=== PATIENT | male | born 1985 | race Caucasian/White ===

== ENCOUNTER 2016-08-09 00:18 | Inpatient (IN) | payer MEDICARE ==
[2016-08-09 01:08] LABS: BASOPHIL 0.9 % (0-2.0); EOSINOPHIL 2.8 % (0-4.5); MCH 31.8 pg (25.7-33.7); MCHC 33.4 g/dl (32.0-35.9); MEAN PLT VOLUME 7.2 fl (7.5-11.1); NEUTROPHILS 64.2 % (42.8-82.8); PLATELET COUNT 319 K/MM3 (134-434); RDW 13.2 % (11.9-15.9); WHITE BLOOD COUNT 12.2 K/mm3 (4.0-10.0)
[2016-08-09 01:33] LABS: ALBUMIN 4.2 g/dl (3.4-5.0); ALK PHOS 97 U/L (45-117); ANION GAP 8 (8-16); BILIRUBIN,TOTAL 0.4 mg/dL (0.2-1.0); CO2 27 mmol/L (21-32); CREATININE 0.8 mg/dL (0.7-1.3); GLUCOSE,RANDOM 111 mg/dL (74-106); SGOT/AST 18 U/L (15-37); SGPT/ALT 55 U/L (12-78); TOT PROT 7.2 g/dl (6.4-8.2)
--- NOTE | 2016-08-09 01:45 | PDOC ---
History of Present Illness - General History Source: Patient Exam Limitations: No Limitations - History of Present Illness Initial Comments: 08/09/16 03:25 The patient is a 21-year-old male with no significant past medical history, and presents to the emergency department with abdominal pain for a week. The patient reports that the pain is localized to the left epigastric region. He reports the abdominal pain was initially intermittent, and occurred whenever he ate or drank. He reports that the abdominal pain has worsened in the last 24 hours, has since become constant in nature, and is exacerbated by eating, drinking, and walking. He took Pepto Bismol a week ago and Motrin yesterday with moderate relief. He states that he drank alcohol last week (8 beers, 2 shots of whiskey). He tried to eat a little today. The patient denies chest pain, shortness of breath, headache and dizziness. The patient denies fever, chills, nausea, vomit, diarrhea and constipation. The patient denies dysuria, frequency, urgency and hematuria. Allergies: NKDA Social History: Current everyday smoker, binge ETOH drinker <Anai Ward - Last Filed: 08/09/16 03:25> <Tammie Nathan - Last Filed: 08/09/16 04:45> - General Chief Complaint: Pain Stated Complaint: STOMACH PAIN Time Seen by Provider: 08/09/16 00:45 Past History <Anai Ward - Last Filed: 08/09/16 03:25> - Past Medical History Other medical history: denies - Psycho/Social/Smoking Cessation Hx Suicidal Ideation: No Smoking History: Current every day smoker Number of Cigarettes Smoked Daily: 1 Information on smoking cessation initiated: No <Tammie Nathan - Last Filed: 08/09/16 04:45> - Past Medical History Allergies/Adverse Reactions: Allergies Allergy/AdvReac Type Severity Reaction Status Date / Time No Known Allergies Allergy Verified 08/09/16 00:25 Home Medications: Ambulatory Orders NK [No Known Home Medication] 08/09/16 Review of Systems - Review of Systems Able to Perform ROS?: Yes Comments:: 08/09/16 03:26 CONSTITUTIONAL: Absent: fever, chills, diaphoresis, generalized weakness, malaise, loss of appetite HEENT: Absent: rhinorrhea, nasal congestion, throat pain, throat swelling, difficulty swallowing, mouth swelling, ear pain, eye pain, visual changes CARDIOVASCULAR: Absent: chest pain, syncope, palpitations, irregular heart rate, lightheadedness , peripheral edema RESPIRATORY: Absent: cough, shortness of breath, dyspnea with exertion, orthopnea, wheezing, stridor, hemoptysis GASTROINTESTINAL: Present: (+) abdominal pain Absent: abdominal distension, nausea, vomiting, diarrhea, constipation, melena, hematochezia GENITOURINARY: Absent: dysuria, frequency, urgency, hesitancy, hematuria, flank pain, genital pain MUSCULOSKELETAL: Absent: myalgia, arthralgia, joint swelling SKIN: Absent: rash, itching, pallor HEMATOLOGIC/IMMUNOLOGIC: Absent: easy bleeding, easy bruising, lymphadenopathy, frequent infections ENDOCRINE: Absent: unexplained weight gain, unexplained weight loss, heat intolerance, cold intolerance NEUROLOGIC: Absent: headache, focal weakness or paresthesias, dizziness, unsteady gait, seizure, mental status changes, bladder or bowel incontinence PSYCHIATRIC: Absent: anxiety, depression, suicidal or homicidal ideation, hallucinations. <Anai Ward - Last Filed: 08/09/16 03:25> *Physical Exam - Vital Signs Last Vital Signs Temp Pulse Resp BP Pulse Ox 97.9 F 85 20 125/69 100 08/09/16 00:23 08/09/16 00:23 08/09/16 00:23 08/09/16 00:23 08/09/16 00:23 - Physical Exam Comments: 08/09/16 03:26 GENERAL: Well developed, well nourished. Awake and alert. No acute distress. HEENT: Normocephalic, atraumatic. PERRLA, EOMI. No conjunctival pallor. Sclera are non- icteric. Moist mucous membranes. Oropharynx is clear. NECK: Supple. Full ROM. No JVD. Carotid pulses 2+ and symmetric, without bruits. No thyromegaly. No lymphadenopathy. CARDIOVASCULAR: Regular rate and rhythm. No murmurs, rubs, or gallops. Distal pulses are 2+ and symmetric. PULMONARY: No evidence of respiratory distress. Lungs clear to auscultation bilaterally. No wheezing, rales or rhonchi. ABDOMINAL: (+) Mild left upper quadrant tenderness to palpation. (+) Mild suprapubic tenderness. Soft. Non-distended. No rebound or guarding. No organomegaly. Normoactive bowel sounds. MUSCULOSKELETAL Normal range of motion at all joints. No bony deformities or tenderness. No CVA tenderness. EXTREMITIES: No cyanosis. No clubbing. No edema. No calf tenderness. SKIN: Warm and dry. Normal capillary refill. No rashes. No jaundice. NEUROLOGICAL: Alert, awake, appropriate. Cranial nerves 2-12 intact. No deficits to light touch and temperature in face, upper extremities and lower extremities. No motor deficits in the in face, upper extremities and lower extremities. Normoreflexic in the upper and lower extremities. Normal speech. Toes are down- going bilaterally. Gait is normal without ataxia. PSYCHIATRIC: Cooperative. Good eye contact. Appropriate mood and affect. <Anai Ward - Last Filed: 08/09/16 03:25> - Vital Signs Last Vital Signs Temp Pulse Resp BP Pulse Ox 97.9 F 85 20 125/69 100 08/09/16 00:23 08/09/16 00:23 08/09/16 00:23 08/09/16 00:23 08/09/16 00:23 <Tammie Nathan - Last Filed: 08/09/16 04:45> ED Treatment Course - LABORATORY CBC & Chemistry Diagram: 08/09/16 01:00 08/09/16 01:00 - ADDITIONAL ORDERS Additional order review: Laboratory Results 08/09/16 01:00 Sodium 141 Potassium 3.5 Chloride 106 Carbon Dioxide 27 Anion Gap 8 BUN 18 Creatinine 0.8 Creat Clearance w eGFR > 60 Random Glucose 111 H Calcium 9.0 Total Bilirubin 0.4 AST 18 ALT 55 Alkaline Phosphatase 97 Total Protein 7.2 Albumin 4.2 Lipase 711 H 08/09/16 01:00 RBC 4.62 MCV 95.0 MCHC 33.4 RDW 13.2 MPV 7.2 L Neutrophils % 64.2 Lymphocytes % 23.4 Monocytes % 8.7 Eosinophils % 2.8 Basophils % 0.9 - Medications Given in the ED: ED Medications Discontinued Medications Generic Name Dose Route Start Last Admin Trade Name Freq PRN Reason Stop Dose Admin Sodium Chloride 1,000 ml 08/09/16 01:59 08/09/16 02:14 Normal Saline - IV 08/09/16 02:00 1,000 ml ONCE ONE Administration <Anai Ward - Last Filed: 08/09/16 03:25> - LABORATORY CBC & Chemistry Diagram: 08/09/16 01:00 08/09/16 01:00 - ADDITIONAL ORDERS Additional order review: Laboratory Results 08/09/16 01:00 Sodium 141 Potassium 3.5 Chloride 106 Carbon Dioxide 27 Anion Gap 8 BUN 18 Creatinine 0.8 Creat Clearance w eGFR > 60 Random Glucose 111 H Calcium 9.0 Total Bilirubin 0.4 AST 18 ALT 55 Alkaline Phosphatase 97 Total Protein 7.2 Albumin 4.2 Lipase 711 H 08/09/16 01:00 RBC 4.62 MCV 95.0 MCHC 33.4 RDW 13.2 MPV 7.2 L Neutrophils % 64.2 Lymphocytes % 23.4 Monocytes % 8.7 Eosinophils % 2.8 Basophils % 0.9 - RADIOLOGY Radiology Studies Ordered: Category Date Time Status ABDOMEN & PELVIS CT WITH CONTR [CT] Stat CT Scan 08/09/16 01:22 Ordered <Tammie Nathan - Last Filed: 08/09/16 04:45> Medical Decision Making - Medical Decision Making 08/09/16 03:35 Pt is a binger drinker, beer and other hard liquior shots on weekends. [place] with epigastric pain and pancreatitis. Pt is unable to eat due to the pain. He has normal CXR; no pancreatic pseudocyst on CT scan of abd/pelvis. Pt has Normal EKG. He was hydrated. Treated with toradol and pepcid. He will be kept NPO and admitted to the hospitalist. 08/09/16 04:44 Patient Name: Pavel Gonzales THIS IS A PRELIMINARY REPORT FROM [facility] DATE OF SERVICE: 2016-08-09 02:47:27.0 IMAGES: [id number] EXAM: ABDOMEN & PELVIS CT WITH CONTR COMPARISON: None. IMPRESSION: Suggestion of multifocal areas of trace wall thickening and fat stranding seen surrounding multiple loops of large intestine. These findings may represent colitis in the appropriate clinical setting. No bowel obstruction or pneumoperitoneum. No abscess. No evidence of appendicitis. THIS DOCUMENT HAS BEEN ELECTRONICALLY SIGNED Pt has colitis and will be treated with ABX <Tammie Nathan - Last Filed: 08/09/16 04:45> *DC/Admit/Observation/Transfer - Attestations Scribe Attestion: 08/09/16 03:26 Documentation prepared by Anai Ward, acting as medical records secretary for Tammie Nathan MD. <Anai Ward - Last Filed: 08/09/16 03:25> - Discharge Dispostion Admit: Yes <Tammie Nathan - Last Filed: 08/09/16 04:45> Diagnosis at time of Disposition: Pancreatitis, Abdominal pain, Alcohol consumption binge drinking, Colitis - Discharge Dispostion Condition at time of disposition: Guarded
[2016-08-09] MEDS ORDERED: SODIUM CHLORIDE 0.9% 500 ML INFUS.BAG IV ONE (01:59)
--- NOTE | 2016-08-09 03:23 | PN ---
<Leatha Francois - Last Filed: 08/09/16 03:23> Teaching Attending Note Name of Resident: Maribel Arita ATTENDING PHYSICIAN STATEMENT I saw and evaluated the patient. I reviewed the resident's note and discussed the case with the resident. I agree with the resident's findings and plan as documented. SUBJECTIVE: OBJECTIVE: ASSESSMENT AND PLAN: <Claudia Clemons - Last Filed: 08/09/16 04:14> Teaching Attending Note ATTENDING PHYSICIAN STATEMENT I saw and evaluated the patient. I reviewed the resident's note and discussed the case with the resident. I agree with the resident's findings and plan as documented. SUBJECTIVE: Patient is a 31 yo M with no PMHx presents with abdominal pain located in the left epigastric abdomen for one week. Worsened over the course of the week. Last drink was New Years Nell. The patient denies chest pain, shortness of breath, headache and dizziness. The patient denies fever, chills, nausea, vomit, diarrhea and constipation. The patient denies dysuria, frequency, urgency and hematuria. Allergies: NKDA Social History: Current everyday smoker 1 pack in 1 week, occasional ETOH drinker Surgical Hx: None OBJECTIVE: Last Vital Signs Temp Pulse Resp BP Pulse Ox 97.9 F 85 20 125/69 100 08/09/16 00:23 08/09/16 00:23 08/09/16 00:23 08/09/16 00:23 08/09/16 00:23 CBCD WBC 12.2 K/mm3 (4.0-10.0) H 08/09/16 01:00 RBC 4.62 M/mm3 (4.00-5.60) 08/09/16 01:00 Hgb 14.7 GM/dL (11.7-16.9) 08/09/16 01:00 Hct 43.9 % (35.4-49) 08/09/16 01:00 MCV 95.0 fl (80-96) 08/09/16 01:00 MCHC 33.4 g/dl (32.0-35.9) 08/09/16 01:00 RDW 13.2 % (11.9-15.9) 08/09/16 01:00 Plt Count 319 K/MM3 (134-434) 08/09/16 01:00 MPV 7.2 fl (7.5-11.1) L 08/09/16 01:00 GENERAL: Awake, alert, and fully oriented, in no acute distress HEENT: Atraumatic. PERRLA, EOMI. Moist mucosa. No JVD LUNGS: No distress, speaks full sentences, clear to auscultation bilaterally HEART: Regular rate and rhythm, normal S1 and S2, no murmurs, rubs or gallops, peripheral pulses normal and equal bilaterally. ABDOMEN: Soft, nontender, normoactive bowel sounds. No guarding, no rebound. No masses EXTREMITIES: Normal inspection, Normal range of motion, no edema. No clubbing or cyanosis. NEUROLOGICAL: Cranial nerves II through XII grossly intact. Normal speech, normal gait, no focal sensorimotor deficits SKIN: Warm, Dry, normal turgor, no rashes or lesions noted. CMP Sodium 141 mmol/L (136-145) 08/09/16 01:00 Potassium 3.5 mmol/L (3.5-5.1) 08/09/16 01:00 Chloride 106 mmol/L (98-107) 08/09/16 01:00 Carbon Dioxide 27 mmol/L (21-32) 08/09/16 01:00 Anion Gap 8 (8-16) 08/09/16 01:00 BUN 18 mg/dL (7-18) 08/09/16 01:00 Creatinine 0.8 mg/dL (0.7-1.3) 08/09/16 01:00 Creat Clearance w eGFR > 60 (>60) 08/09/16 01:00 Calcium 9.0 mg/dL (8.5-10.1) 08/09/16 01:00 Total Bilirubin 0.4 mg/dL (0.2-1.0) 08/09/16 01:00 AST 18 U/L (15-37) 08/09/16 01:00 ALT 55 U/L (12-78) 08/09/16 01:00 Alkaline Phosphatase 97 U/L (45-117) 08/09/16 01:00 Total Protein 7.2 g/dl (6.4-8.2) 08/09/16 01:00 Albumin 4.2 g/dl (3.4-5.0) 08/09/16 01:00 CT: Abdomen Pelvis pending ASSESSMENT AND PLAN: 31 yo male with no PMH presents with acute pancreatitis. 1.)Acute pancreatitis -NPO -IVF -Pain control -Follow up final read of abdomen CT 2.) DVT ppx -Low risk ambulate Documentation prepared by Claudia Clemons, acting as medical driver for Leatha Francois M.D.
[2016-08-09] MEDS ORDERED: PANTOPRAZOLE SODIUM 40 MG in SODIUM CHLORIDE 100 ML IVPB ONE (03:24)
[2016-08-09] MEDS ORDERED: KETOROLAC TROMETHAMINE 30 MG/1 ML VIAL IVPUSH ONE (03:24)
[2016-08-09] MEDS ORDERED: PANTOPRAZOLE SODIUM 100 ML IVPB ONE (03:25)
[2016-08-09] MEDS ORDERED: KETOROLAC TROMETHAMINE 30 MG/1 ML VIAL ONE (03:25)
--- NOTE | 2016-08-09 04:10 | HP ---
CHIEF COMPLAINT: Abdominal pain x 1 week PCP: No PCP. Upon discharge please assign Dr. Smallwood (To make appointment on Wednesday after 1 pm if possible) HISTORY OF PRESENT ILLNESS: 31 year old male with no past medical hx presented to the ED for severe abdominal pain. Abdominal pain started around 1 week ago, sudden in onset, progressively getting worse, located in the left upper quadrant, cramping in nature, non radiating, not associated with nausea or vomiting. Abdominal pain is aggravated by eating any kind of food. Patients mother gave him Motrin ( Liquid) which decreased the severity of pain to some extent. This morning, patient had severe abdominal pain on the way to work. Had to return back, slept for several hours. After he woke up, he ate which aggravated his pain and his mother brought him to the hospital. ER course was notable for: (1) CBC, CMP (2) Abdominal CT (3) IV NS, Protonix, Ketorolac Recent Travel: None PAST MEDICAL HISTORY: None PAST SURGICAL HISTORY: None Social History: Smoking: Active smoker, smokes 1 pack/1 week since 5 years. Alcohol: Drinks on the weekends, 2-3 bottles of beer. Last took alcohol on . Drugs: No use of illicit drugs. Family History: Allergies No Known Allergies Allergy (Verified 08/09/16 00:25) HOME MEDICATIONS: Medication Instructions Recorded NK [No Known Home Medication] 08/09/16 REVIEW OF SYSTEMS CONSTITUTIONAL: Absent: fever, chills, diaphoresis, generalized weakness, malaise, loss of appetite, weight change HEENT: Absent: rhinorrhea, nasal congestion, throat pain, throat swelling, difficulty swallowing, mouth swelling, ear pain, eye pain, visual changes CARDIOVASCULAR: Absent: chest pain, syncope, palpitations, irregular heart rate, lightheadedness , peripheral edema RESPIRATORY: Absent: cough, shortness of breath, dyspnea with exertion, orthopnea, wheezing, stridor, hemoptysis GASTROINTESTINAL: Present: abdominal pain Absent: nausea, vomiting, diarrhea, constipation, melena, hematochezia GENITOURINARY: Absent: dysuria, frequency, urgency, hesitancy, hematuria, flank pain, genital pain MUSCULOSKELETAL: Absent: myalgia, arthralgia, joint swelling, back pain, neck pain SKIN: Absent: rash, itching, pallor HEMATOLOGIC/IMMUNOLOGIC: Absent: easy bleeding, easy bruising, lymphadenopathy, frequent infections ENDOCRINE: Absent: unexplained weight gain, unexplained weight loss, heat intolerance, cold intolerance NEUROLOGIC: Absent: headache, focal weakness or paresthesias, dizziness, unsteady gait, seizure, mental status changes, bladder or bowel incontinence PSYCHIATRIC: Absent: anxiety, depression, suicidal or homicidal ideation, hallucinations. PHYSICAL EXAMINATION GENERAL: Patient is lying comfortably in bed, Awake, alert, and fully oriented, in no acute distress. HEAD: Normal with no signs of trauma. EYES: No h/o sclera anicteric. EARS, NOSE, THROAT: Ears normal, Moist mucous membranes. NECK:Supple LUNGS: Breath sounds equal, clear to auscultation bilaterally. No wheezes, and no crackles. No accessory muscle use. HEART: Regular rate and rhythm, normal S1 and S2 without murmur, rub or gallop. ABDOMEN: Soft, nontender, not distended, normoactive bowel sounds, no guarding, no rebound, no masses. No hepatomegaly or splenomegaly. MUSCULOSKELETAL: Normal range of motion at all joints. No bony deformities or tenderness. No CVA tenderness. UPPER EXTREMITIES: 2+ pulses, warm, well-perfused. No cyanosis. No clubbing. Cap refill <2 seconds. No peripheral edema. LOWER EXTREMITIES: 2+ pulses, warm, well-perfused. No calf tenderness. No peripheral edema. NEUROLOGICAL: Cranial nerves II-XII intact. Normal speech. Gait not observed. PSYCHIATRIC: Cooperative. Good eye contact. Appropriate mood and affect. SKIN: Warm, dry, normal turgor, no rashes or lesions noted. ASSESSMENT/PLAN: 31 year old male with no past medical history came in to the hospital with the chief complaint of abdominal pain x 1 week. # Abdominal pain Most likely pancreatitis. Lipase 711, abdominal pain +, active smoker, drinks alcohol CT abdmomen/Pelvis report pending Admitted in Med-Surg Kept NPO IV protonix 40mg Daily Pain control with morphine 1mg Q6H prn Ordered lipid profile # Active smoker Smoking cessation. # FEN IV fluids Normal saline @ 125mls/hr Electrolytes NOrmal. NPO # Prophylaxis For DVT: SCD's For GI: Not indidcated Illness, Investigation and plan of care explained to the paitient. He verbalized understanding. Case seen and discussed with Dr. Francois. Visit type - Emergency Visit Emergency Visit: Yes ED Registration Date: 08/09/16 Care time: The patient presented to the Emergency Department on the above date and was hospitalized for further evaluation of their emergent condition. - New Patient This patient is new to me today: Yes Date on this admission: 08/09/16 - Critical Care Critical Care patient: No
[2016-08-09] MEDS ORDERED: morphine CARPU-JECT 2 MG/1 ML DISP.SYRIN IVPUSH PRN (04:11)
[2016-08-09] MEDS ORDERED: LEVOFLOXACIN 500 MG IVPB 100 ML IVPB ONE ×2 (04:39→04:42)
[2016-08-09] MEDS ORDERED: METRONIDAZOLE 500 MG PREMIXED 100 ML IVPB ONE ×3 (04:40→12:21)
[2016-08-09 07:19] LABS: MCH 32.9 pg (25.7-33.7); MEAN CELL VOLUME 96.7 fl (80-96); MEAN PLT VOLUME 7.4 fl (7.5-11.1); PLATELET COUNT 296 K/MM3 (134-434); RDW 13.2 % (11.9-15.9); WHITE BLOOD COUNT 9.5 K/mm3 (4.0-10.0)
[2016-08-09 07:57] LABS: ALBUMIN 3.6 g/dl (3.4-5.0); ANION GAP 6 (8-16); BILIRUBIN,TOTAL 0.5 mg/dL (0.2-1.0); CALCIUM 8.1 mg/dL (8.5-10.1); CHOLESTEROL 127 mg/dL (50-200); CO2 25 mmol/L (21-32); CREATININE 0.6 mg/dL (0.7-1.3); GLUCOSE,RANDOM 100 mg/dL (74-106); LDL CHOLESTEROL (ONLY SJRH) 82 mg/dL (5-100); SGOT/AST 19 U/L (15-37); SGPT/ALT 51 U/L (12-78); TOT PROT 6.5 g/dl (6.4-8.2)
[2016-08-09 07:58] LABS: ALK PHOS 91 U/L (45-117)
[2016-08-09] MEDS ORDERED: LACTATED RINGERS SOLUTION 1,000 ML IV SCH ×2 (08:15→13:30)
[2016-08-09] MEDS: METRONIDAZOLE 500 MG PREMIXED 100 ML IVPB SCH ×2 (12:28→17:58)
[2016-08-09] MEDS ORDERED: ONDANSETRON 4 MG/2 ML VIAL IVPB PRN (13:22)
--- NOTE | 2016-08-09 13:23 | HOSP ---
Subjective - Review of Symptoms Subjective: 31yo M c/o LLQ pain x1 week. states started suddenly cramping in nature. relieved with pain medications. aggravated by eating. not assoc with Nausea or vomiting. pain not radiating. no hx in the past. states his last drink was 2 weeks ago ( he drank 6 pack of beer and 2 heavy liquor shots). abdomen soft NT/ND no rebound or guarding. negative mcburney point or rovsing sign 1. Acute colitis- do not suspect pancreatitis at this time. lipase is only mildly elevated, clinical presentation does not support pancreatitis, prelim CT scan is negative for pancreatitis, but will await for official read. start clear liquid diet. advance as tolerated. decrease IVF and d/c once tolerating regualr diet. start Flagyl IV. will convert to po and d/c home once tolerating diet. cont pain and nausea control Physical Examination Vital Signs: Vital Signs Temperature 97.9 F 08/09/16 00:23 Pulse Rate 84 08/09/16 08:14 Respiratory Rate 18 08/09/16 08:14 Blood Pressure 153/74 08/09/16 08:14 O2 Sat by Pulse Oximetry (%) 100 08/09/16 08:14 Labs: CBC, BMP 08/09/16 06:32 08/09/16 06:32
--- NOTE | 2016-08-09 13:52 | PN ---
Physical Exam: SUBJECTIVE: Patient seen and examined at bedside in ER. Pt c/o pain in LUQ for 1 week, progressively worsening, worse with food. No radiation of pain, crampy in nature. Not associated with N/V/F/C, diarrhea. Motrin provided minimal relief. Smokes 1 pack per week and drinks once per month (last drink being new years georges when he drank 6 beers and 2 shots of whiskey). No previous surgeries. OBJECTIVE: Vital Signs Temperature 97.9 F 08/09/16 00:23 Pulse Rate 84 08/09/16 08:14 Respiratory Rate 18 08/09/16 08:14 Blood Pressure 153/74 08/09/16 08:14 O2 Sat by Pulse Oximetry (%) 100 08/09/16 08:14 GENERAL: The patient is awake, alert, and fully oriented, in no acute distress. HEAD: Normal with no signs of trauma. EYES: EOMI, sclera anicteric, conjunctiva clear. ENT: Ears normal, nares patent, oropharynx clear without exudates, moist mucous membranes. NECK: Trachea midline, full range of motion LUNGS: Breath sounds equal, clear to auscultation bilaterally, no wheezes, no crackles, no accessory muscle use. HEART: Regular rate and rhythm, S1, S2 without murmur, rub or gallop. ABDOMEN: Soft, mild LUQ/L periumbilical tenderness, nondistended, normoactive bowel sounds, no guarding, no rebound, no hepatosplenomegaly, no masses. EXTREMITIES: 2+ pulses, warm, well-perfused, no edema. NEUROLOGICAL:Normal speech, gait not observed. PSYCH: Normal mood, normal affect. SKIN: Warm, dry, normal turgor, no rashes or lesions noted Laboratory Results - last 24 hr 08/09/16 08/09/16 06:32 06:32 WBC 9.5 RBC 4.28 Hgb 14.1 Hct 41.4 MCV 96.7 H MCHC 34.0 RDW 13.2 Plt Count 296 MPV 7.4 L Sodium 141 Potassium 4.0 Chloride 110 H Carbon Dioxide 25 Anion Gap 6 L BUN 12 D Creatinine 0.6 L D Creat Clearance w eGFR > 60 Random Glucose 100 Calcium 8.1 L Total Bilirubin 0.5 D AST 19 ALT 51 Alkaline Phosphatase 91 Total Protein 6.5 Albumin 3.6 Triglycerides 100 Cholesterol 127 Total LDL Cholesterol 82 HDL Cholesterol 32 L Active Medications Generic Name Dose Route Start Last Admin Trade Name Freq PRN Reason Stop Dose Admin Metronidazole 100 mls @ 100 mls/hr 08/09/16 12:00 08/09/16 12:28 Flagyl 500mg Premixed Ivpb - IVPB 100 mls/hr Q8H-IV RICHARD Administration Lactated Ringer's 1,000 mls @ 75 mls/hr 08/09/16 13:30 Lactated Ringers Solution IV ASDIR RICHARD Morphine Sulfate 1 mg 08/09/16 04:11 Morphine Injection - IVPUSH Q6H PRN PAIN Ondansetron HCl 4 mg 08/09/16 13:22 Zofran Injection IVPB Q6H PRN NAUSEA ASSESSMENT/PLAN: 31 y/o M with no sig PMH presents with abd pain for progressively worsening abd pain for 1 week. Admitted for possible colitis vs pancreatitis. -Abdominal pain secondary to most likely colitis vs pancreatitis -Sx are inconsistent with typical pancreatitis although lipase is elevated at 711. -lipid panel: triglycerides: 100, cholesterol 127, HDL 32, LDL 82 -Prelim read on Abd Ct shows: multifocal areas of trace wall thickening and fat stranding seen surrounding multiple loops of large intestine. -Awaiting official read -Started on Flagyl 500 mg IV Q8H -Pain control with morphine 1 mg IV q6h prn -nausea - zofran 4mg IV q6h prn -Advanced diet to clear liquids as tolerated -LR @ 75 ml/hr -Active smoker -smoking cessation -FEN -LR @ 75 ml/hr -monitor electrolytes -clear liquid diet as tolerated -Dispo: -Awaiting official Abd CT read, if pt can tolerate regular diet can switch to PO meds and discharge home. Problem List - Problems (1) Abdominal pain Code(s): R10.9 - UNSPECIFIED ABDOMINAL PAIN (2) Alcohol consumption binge drinking Code(s): F10.10 - ALCOHOL ABUSE, UNCOMPLICATED (3) Colitis Code(s): K52.9 - NONINFECTIVE GASTROENTERITIS AND COLITIS, UNSPECIFIED (4) Pancreatitis Code(s): K85.9 - ACUTE PANCREATITIS, UNSPECIFIED * DO NOT USE * Visit type - Emergency Visit Emergency Visit: Yes ED Registration Date: 08/09/16 Care time: The patient presented to the Emergency Department on the above date and was hospitalized for further evaluation of their emergent condition. - New Patient This patient is new to me today: Yes Date on this admission: 08/09/16 - Critical Care Critical Care patient: No
--- NOTE | 2016-08-09 14:34 | EKG ---
Test Reason : Blood Pressure : / mmHG Vent. Rate : 069 BPM Atrial Rate : 069 BPM P-R Int : 154 ms QRS Dur : 094 ms QT Int : 362 ms P-R-T Axes : 027 049 027 degrees QTc Int : 387 ms NORMAL SINUS RHYTHM NORMAL ECG NO PREVIOUS ECGS AVAILABLE Confirmed by DESIREE BERRIOS MD ([id number]) on 08/09/2016 2:33:50 PM Referred By: Confirmed By:DESIREE BERRIOS MD
[2016-08-09 15:39] VITALS: BMI 22.6
[2016-08-09] MEDS ORDERED: INFLUENZA VACCINE 45 MCG/0.5 ML (MDV 16-17) IM ONE (17:00)
[2016-08-10] MEDS: METRONIDAZOLE 500 MG PREMIXED 100 ML IVPB SCH ×2 (01:39→09:13)
[2016-08-10 07:37] LABS: BASOPHIL 0.7 % (0-2.0); EOSINOPHIL 1.8 % (0-4.5); MCH 33.4 pg (25.7-33.7); MCHC 34.9 g/dl (32.0-35.9); MEAN CELL VOLUME 95.9 fl (80-96); MEAN PLT VOLUME 7.5 fl (7.5-11.1); NEUTROPHILS 76.2 % (42.8-82.8); PLATELET COUNT 282 K/MM3 (134-434); RDW 13.2 % (11.9-15.9); WHITE BLOOD COUNT 9.8 K/mm3 (4.0-10.0)
[2016-08-10 08:03] LABS: CALCIUM 8.6 mg/dL (8.5-10.1); CREATININE 0.7 mg/dL (0.7-1.3)
[2016-08-10 09:14] VITALS: BP 134/81; PULSE 86; TEMP 98.5
[2016-08-10] MEDS ORDERED: PANTOPRAZOLE SODIUM 100 ML IVPB SCH (10:00)
--- NOTE | 2016-08-10 10:51 | DS ---
Physical Exam: SUBJECTIVE: Patient seen and examined. pain and nausea resolved. tolerating diet well. denies CP, SOB,fever, chills, N/V/C/D OBJECTIVE: Vital Signs Period Temp Pulse Resp BP Sys/Figueroa Pulse Ox Last 24 Hr 97.7 F-98.5 F 61-86 18-18 124-135/54-81 100-100 PHYSICAL EXAM GENERAL: The patient is awake, alert, and fully oriented, in no acute distress. HEAD: Normal with no signs of trauma. EYES: PERRL, extraocular movements intact, sclera anicteric, conjunctiva clear. ENT: Ears normal, nares patent, oropharynx clear without exudates, moist mucous membranes. NECK: Trachea midline, full range of motion, supple. LUNGS: Breath sounds equal, clear to auscultation bilaterally, no wheezes, no crackles, no accessory muscle use. HEART: Regular rate and rhythm, S1, S2 without murmur, rub or gallop. ABDOMEN: Soft, nontender, nondistended, normoactive bowel sounds, no guarding, no rebound, no hepatosplenomegaly, no masses. EXTREMITIES: 2+ pulses, warm, well-perfused, no edema. NEUROLOGICAL: Cranial nerves II through XII grossly intact. Normal speech, gait not observed. PSYCH: Normal mood, normal affect. SKIN: Warm, dry, normal turgor, no rashes or lesions noted. LABS Laboratory Results - last 24 hr 08/10/16 08/10/16 06:15 06:15 WBC 9.8 RBC 4.25 Hgb 14.2 Hct 40.8 MCV 95.9 MCHC 34.9 RDW 13.2 Plt Count 282 MPV 7.5 Neutrophils % 76.2 Lymphocytes % 12.0 D Monocytes % 9.3 Eosinophils % 1.8 Basophils % 0.7 Sodium 139 Potassium 3.8 Chloride 106 Carbon Dioxide 25 Anion Gap 8 BUN 6 L D Creatinine 0.7 Random Glucose 91 Calcium 8.6 HOSPITAL COURSE: Date of Admission:08/09/16 Date of Discharge: 08/10/16 Admitting diagnosis: Acute colitis Pre hospital course 31 year old male with no past medical hx presented to the ED for severe abdominal pain. Abdominal pain started around 1 week ago, sudden in onset, progressively getting worse, located in the left upper quadrant, cramping in nature, non radiating, not associated with nausea or vomiting. Abdominal pain is aggravated by eating any kind of food. Patients mother gave him Motrin ( Liquid) which decreased the severity of pain to some extent. This morning, patient had severe abdominal pain on the way to work. Had to return back, slept for several hours. After he woke up, he ate which aggravated his pain and his mother brought him to the hospital. SUbsequent hospital course admitted to medicine. started on IVF and Flagyl. symptoms improved. diet advanced and tolerated well. d/c home on flagyl to complete 7 day course Minutes to complete discharge: 40 Discharge Summary Reason For Visit: ABDOMINAL PAIN, PANCREATITIS Current Active Problems Abdominal pain (Acute) Alcohol consumption binge drinking (Acute) Colitis (Acute) Pancreatitis (Acute) Condition: Improved - Instructions Diet, Activity, Other Instructions: Eat a high fiber diet See a primary care doctor this week, information on the doctor you saw here in the hospital has been provided Take antibiotics until completed, even if your symptoms resolved. You took your morning dose here in the hospital Return to the Er for worsening symptoms or fever (Temp >101) Referrals: Joe Smallwood MD [Staff Physician] - 1 Week (Saw resident Dr Frankie Lawson) Disposition: HOME - Home Medications Comprehensive Discharge Medication List: Ambulatory Orders Metronidazole [Flagyl -] 500 mg PO Q8H #17 tablet 08/10/16 This patient is new to me today: No Emergency Visit: Yes ED Registration Date: 08/09/16 Care time: The patient presented to the Emergency Department on the above date and was hospitalized for further evaluation of their emergent condition. Critical Care patient: No - Discharge Referral Referred to [facility] Med [facility] Yes Physician Referral: Joe Smallwood MD (Int Med) (Frankie Lawson (resident))
== END 2016-08-10 11:29 | disposition home or self-care (01) | DRG 282 ==
LOC: EDBD 00:18 → JER 00:18 → JERBED 03:32 → J7W 15:27
PROVIDERS: ADMIT Internal Medicine; ATTEND Internal Medicine
DX: K85.90 Acute pancreatitis without necrosis or infection, unspecified (principal); K52.9 Noninfective gastroenteritis and colitis, unspecified; F17.210 Nicotine dependence, cigarettes, uncomplicated
CPT/HCPCS: 36415; 71010-TC; 74177-TC; 80048; 80053; 80061; 83690; 83721; 85025; 85027; 93005; 93010; 99284-25; G0008; Q2037